=== PATIENT | male | born 1975 | race Caucasian/White ===

== ENCOUNTER 2020-11-06 14:14 | Emergency (ER) | payer OTHER, SELFPAY ==
[2020-11-06] VITALS (7 sets, daily range): BP systolic 130–132; BP diastolic 69–76; PULSE 102–128; RESP 18–21; TEMP 36.8–38.4; O2SAT 95–96; BMI 38.9
--- NOTE | 2020-11-06 14:29 | EKG12_ITS ---
Test Reason : Blood Pressure : / mmHG Vent. Rate : 117 BPM Atrial Rate : 117 BPM P-R Int : 142 ms QRS Dur : 094 ms QT Int : 310 ms P-R-T Axes : 027 029 009 degrees QTc Int : 432 ms Sinus tachycardia Otherwise normal ECG Confirmed by GARETH POSADA, RADHA ([id number]), continuity editor SHADI BREAUX ([id number]) on 11/08/2020 1:55:28 PM Referred By: ANNE-MARIE Confirmed By:RADHA SERVIN MD
--- NOTE | 2020-11-06 14:32 | NURSING ---
NO OLD EKGS
--- NOTE | 2020-11-06 14:47 | EDS_ITS ---
HPI History of Present Illness Chief Complaint: Complaint Narrative Narrative: 44-year-old male presenting with hypotension, fever, dysuria. Patient states that he recently had a vasectomy and this had healed well. He has not had any complications. He denies any testicular pain but does complain of the dysuria. He denies any flank pain. Patient noted he had a fever this morning and took ibuprofen and is afebrile on arrival. Patient was initially seen in urgent care where he could not void and was transferred over to the ER for further treatment. Patient states that currently he feels fine and he has no nausea or pain. [facility] Medical History Hypertension Home Medications ciprofloxacin HCl 500 mg PO BID #14 tablet 11/06/20 [Rx Last Taken Unknown] lisinopril 20 mg PO DAILY 11/06/20 [History Last Taken Unknown] multivitamin 1 tab PO DAILY 11/06/20 [History Last Taken Unknown] phenazopyridine [Pyridium] 200 mg PO Q8H PRN #6 tab 11/06/20 [Rx Last Taken Unknown] Allergy/AdvReac Type Severity Reaction Status Date / Time Penicillins [PCN] Allergy Anaphylaxis Verified 11/06/20 14:18 Social History Smoking Status: Never smoker ROS ROS ED Constitutional Constitutional ED: Reports chills and fever(s) Eyes Eyes: Denies blurry vision or change in vision ENT ENT ED: Denies rhinorrhea or sore throat Cardiovascular Cardiovascular: Denies chest pain or palpitations Respiratory/Chest Respiratory/Chest: Denies cough or dyspnea Gastrointestinal Gastrointestinal: Denies abdominal pain, nausea or vomiting Genitourinary Genitourinary ED: Reports dysuria and urinary frequency Musculoskeletal Musculoskeletal: Denies arthralgias, back pain or neck pain Integumentary Denies abscess or rash Neurologic Neurologic: Denies headache(s) or paresthesias Psychiatric Psychiatric: Denies anxiety or depression EXAM Physical Exam Const Vital Signs: 11/06/20 14:15 11/06/20 14:45 11/06/20 14:50 Temperature 98.2 F 98.2 F Temperature Source Temporal Oral Pulse Rate 128 H 128 H Respiratory Rate 18 18 Blood Pressure 130/76 H 130/76 H Blood Pressure Mean 94 94 Pulse Ox 95 95 Oxygen Delivery Method Room Air Room Air Room Air 11/06/20 14:56 11/06/20 15:30 Temperature 101.2 F H 101.2 F H Temperature Source Oral Oral Pulse Rate 109 H Respiratory Rate 21 H Blood Pressure 132/71 H Blood Pressure Mean 91 Pulse Ox 96 Oxygen Delivery Method Room Air Positive well nourished General Appearance ED: NAD; Negative for pallor HEENT normocephalic and atraumatic Eyes PERRL and EOMs intact bilaterally General Eye ED: Negative for pale conjunctiva Resp normal respiratory effort and clear to auscultation bilaterally Cardio regular rhythm Rate: tachycardic GI non-tender and non-distended Palpation: soft Penis: normal penis Testes: testicular lie normal Extremity normal to inspection General Extremety ED: Negative for edema General Extremity: Negative for edema Neuro oriented x3 and CN's II-XII intact bilaterally Sensorium / Orientation: alert Psych mental status grossly normal Skin General Skin Exam: Negative for jaundice or pallor Lesions: no lesions Rashes: no rashes MDM MDM MDM Narrative Medical decision making narrative: Patient presenting with fever, tachycardia, reported hypotension from urgent care. Patient's blood pressure was reportedly 82/52 at the urgent care. He states he was a little bit lightheaded but felt otherwise fine. He noted that he had a fever this morning and took ibuprofen. Patient is also complaining of dysuria. He does not have any flank pain. Given patient's reported vital signs and presentation patient received a septic work- up. Patient had EKG which is sinus rhythm at 117 bpm without signs of ischemia or dysrhythmia on my interpretation. Chest ray as interpreted by myself shows no acute cardiopulmonary process and the radiologist does agree. Patient's patient does not have a leukocytosis. His hemoglobin hematocrit are stable. Creatinine is normal. Electrolytes within normal limits. Troponin is 5.1. LFTs are normal with exception of an elevated bilirubin of 1.3. Patient was discussed with urology who requested a CT abdomen pelvis to be performed to rule out infected kidney stone. This was performed And is negative. Patient has not had any low blood pressures here in the ER. After his fever was treated his heart rate slowed down. Patient's lab work-up ultimately is unremarkable. Patient was again discussed with Dr. Giles who felt comfortable having the patient follow-up as an outpatient. He recommended Cipro. Urine culture is pending. Patient is given return precautions. Impression: 1. UTI 2. Febrile illness Lab Data Labs: Laboratory Results - last 24 hr 11/06/20 11/06/20 11/06/20 14:51 14:51 14:51 WBC 10.0 RBC 5.15 Hgb 14.2 Hct 42.2 MCV 81.9 MCH 27.6 MCHC 33.6 RDW Std Deviation 38.2 RDW Coeff of [place] 12.8 Plt Count 173 MPV 10.7 Immature Gran % (Auto) 0.500 Neut % (Auto) 88.8 H Lymph % (Auto) 4.6 L [place] % (Auto) 5.6 Eos % (Auto) 0.1 Baso % (Auto) 0.4 Absolute Neuts (auto) 8.9 H Absolute Lymphs (auto) 0.46 L Nucleated RBC % 0 Differential Comment SCANNED PT 12.8 INR 1.0 APTT 25.3 Sodium 135 L Potassium 3.8 Chloride 103 Carbon Dioxide 25.0 Anion Gap 7 BUN 24 H Creatinine 1.18 Estim Creat Clear Calc 97.06 Est GFR (MDRD) Af Amer 86 Est GFR (MDRD) Non-Af 71 BUN/Creatinine Ratio 20.3 H Glucose 92 Lactic Acid Calcium 8.7 Total Bilirubin 1.30 H AST 15 ALT 45 Alkaline Phosphatase 108 Troponin I High Sens 5.1 Total Protein 7.0 Albumin 4.0 Globulin 3.0 Albumin/Globulin Ratio 1.3 Urine Color Urine Clarity Urine pH Ur Specific [place] Urine Protein Urine Glucose (UA) Urine Ketones Urine Occult Blood Urine Nitrite Urine Bilirubin Urine Urobilinogen Ur Leukocyte Esterase Urine RBC Urine WBC Ur Squamous Epith Cells Urine Bacteria Urine Mucus 11/06/20 11/06/20 14:51 15:00 WBC RBC Hgb Hct MCV MCH MCHC RDW Std Deviation RDW Coeff of [place] Plt Count MPV Immature Gran % (Auto) Neut % (Auto) Lymph % (Auto) [place] % (Auto) Eos % (Auto) Baso % (Auto) Absolute Neuts (auto) Absolute Lymphs (auto) Nucleated RBC % Differential Comment PT INR APTT Sodium Potassium Chloride Carbon Dioxide Anion Gap BUN Creatinine Estim Creat Clear Calc Est GFR (MDRD) Af Amer Est GFR (MDRD) Non-Af BUN/Creatinine Ratio Glucose Lactic Acid 1.2 Calcium Total Bilirubin AST ALT Alkaline Phosphatase Troponin I High Sens Total Protein Albumin Globulin Albumin/Globulin Ratio Urine Color Yellow Urine Clarity Cloudy Urine pH 6.0 Ur Specific [place] 1.015 Urine Protein 100 H Urine Glucose (UA) Normal Urine Ketones 5 H Urine Occult Blood 250 H Urine Nitrite Positive H Urine Bilirubin 1 H Urine Urobilinogen 1 H Ur Leukocyte Esterase 500 H Urine RBC 25-50 SEEN Urine WBC >100 SEEN Ur Squamous Epith Cells 0 SEEN Urine Bacteria 1+ Urine Mucus 0 SEEN Radiography Diagnostic Testing: Radiology Impression Abdomen/Pelvis CT 11/06/20 14:52 IMPRESSION: No acute abnormality. Electronically Signed: Richard Louie MD at 16:21 EDT Tel , Service support , Chest X-Ray 11/06/20 15:25 IMPRESSION: Normal x-ray examination of the chest. Electronically Signed: Richard Louie MD at 15:55 EDT Tel , Service support , Discharge Plan Triage Chief Complaint: Complaint ED Provider: Kendall Arshad Dx/Rx/DC Orders Instructions: ED Bladder Infection, Male (Adult) Prescriptions: New phenazopyridine [Pyridium] 200 mg tablet 200 mg PO Q8H PRN (Reason: pain) Qty: 6 RF: 0 ciprofloxacin HCl 500 mg tablet 500 mg PO BID Qty: 14 RF: 0 No Action multivitamin Tablet 1 tab PO DAILY RF: 0 lisinopril 20 mg Tablet 20 mg PO DAILY RF: 0 Primary Care Provider: Richard Funk MATHEMATICAL ENGINEER Referrals: Richard Funk MATHEMATICAL ENGINEER, MATHEMATICAL ENGINEER-C [Primary Care Provider] - Disposition Disposition: Home, Self Care
[2020-11-06] MEDS: 0.9% Normal Saline 1,000 ML 999 ML IV (14:49)
--- NOTE | 2020-11-06 14:52 | CT_ITS ---
STUDY: CT ABDOMEN AND PELVIS WITHOUT CONTRAST REASON FOR EXAM: Male, 44 years old. fever/dysuria RADIATION DOSAGE (If Supplied By Facility): CTDIvol = ( 22.86 ) mGy, DLP = ( 1325.12 ) mGycm TECHNIQUE: Transaxial images were obtained from the dome of the diaphragm to the symphysis pubis without oral contrast, and without intravenous contrast. Sagittal and coronal images were reconstructed. Individualized dose optimization techniques were used for this CT. COMPARISON: None. FINDINGS: The visualized lung bases are unremarkable. The visualized portions of the heart are within normal limits. Normal liver. Normal gallbladder and extrahepatic biliary system. Normal spleen. Normal pancreas. Normal bilateral adrenal glands. Normal right kidney. Normal left kidney. Normal visualized stomach. Normal small intestine. Normal colon. The appendix is visualized and appears normal. Normal abdominal aorta. Normal inferior vena cava. Normal retroperitoneum. Normal urinary bladder. There are prostatic calcifications. There is a small umbilical hernia containing fat. Small bilateral inguinal hernias containing fat. Normal osseous structures. CT/Abdomen/Pelvis without Cont IMPRESSION: No acute abnormality. Electronically Signed: Richard Louie MD at 16:21 EDT Tel , Service support ,
[2020-11-06 14:59] LABS: Absolute Lymphocyte Count 0.46 X10^3/uL (0.83-4.51); Absolute Neutrophil Count 8.9 X10^3/uL (2.0-7.7); Basophil# 0.04 X10^3/uL; Basophil% 0.4 % (0-1); Eosinophil# 0.01 X10^3/uL; Eosinophils% 0.1 % (0-5); Hematocrit 42.2 % (40-54); Hemoglobin 14.2 g/dL (13.0-16.5); Lymphocyte # 0.46 X10^3/ul (0.83-4.51); Lymphocyte % 4.6 % (19-41); Mean Corp Hgb Conc 33.6 g/dL (32-36); Mean Corpuscular Hgb 27.6 pg (27.0-32.0); Mean Corpuscular Volume 81.9 fL (80-94); Mean Platelet Vol. 10.7 fl (6.2-12.0); Monocyte# 0.56 X10^3/uL; Monocyte% 5.6 % (0-10); NRBC Flagged by Analyzer 0 % (0-5); Neutrophil # 8.85 X10^3/uL (2.7-7.7); Neutrophil % 88.8 % (47-70); POSITIVE DIFFERENTIAL YES; Platelet Count 173 K/mm3 (150-450); RBC Distribution Width CV 12.8 % (11.6-14.6); RBC Distribution Width SD 38.2 fl (35.1-43.9); Red Blood Count 5.15 M/mm3 (4.6-6.2)
[2020-11-06 15:01] LABS: Differential Indicated SCAN CRITERIA MET
[2020-11-06 15:05] LABS: Mucous, Urine 0 SEEN /hpf (<or=2+); Squamous Epithelial Cells - UA 0 SEEN /hpf (0-5)
[2020-11-06 15:08] LABS: Prothrombin Time (Protime)PT. 12.8 SECONDS (11.7-14.9)
[2020-11-06 15:09] LABS: Partial Thromboplast Time 25.3 Seconds (24.1-36.2)
[2020-11-06 15:11] LABS: Color, Urine Yellow (Yellow); Glucose, Dipstick Normal (Normal); Ketone-Dipstick 5 mg/dl (Negative); Leukocyte Esterase-Dipstick 500 /ul (Negative); Nitrite-Dipstick Positive (Negative); Occult Blood-Urine 250 /ul (Negative); Protein-Dipstick 100 mg/dl (Negative); Specific Gravity, Urine 1.015 (1.002-1.030); Urine Bilirubin Dipstick 1 mg/dL (Negative); Urine Clarity Cloudy (Clear); Urine Urobilinogen 1 mg/dl (Normal)
[2020-11-06 15:19] LABS: ALB/GLOB Ratio 1.3 RATIO (0.9-2.4); AST(SGOT) 15 U/L (15-37); Alanine Aminotransfer ALT/SGPT 45 U/L (16-61); Alkaline Phosphatase 108 U/L (45-117); Anion Gap 7 (5-15); BUN 24 mg/dL (7-18); BUN/Creat Ratio 20.3 RATIO (10-20); Calcium,Total 8.7 mg/dL (8.5-10.1); Chloride 103 mmol/L (98-107); Creatinine, Serum 1.18 mg/dL (0.70-1.30); EST Glomerular Filtration Rate 71 mL/min (>60); Est Glom Filt Rate - Afr Amer 86 mL/min (>60); Estimated Creatinine Clearance 97.06 ml/min; Glucose 92 mg/dL (74-106); Potassium 3.8 mmol/L (3.5-5.1); Sodium Level 135 mmol/L (136-145); Troponin-I HS 5.1 pg/mL (3.0-78.5)
[2020-11-06 15:22] LABS: Bacteria 1+ /hpf (None Seen); Red Blood Cells-Urine 25-50 SEEN /hpf (0-5); White Blood Cells >100 SEEN /hpf (0-5)
--- NOTE | 2020-11-06 15:25 | RAD_ITS ---
STUDY: X-RAY CHEST REASON FOR EXAM: Male, 44 years old. fever TECHNIQUE: Single AP portable view of the chest. COMPARISON: None. FINDINGS: The lungs are clear and expanded. There is no demonstrated pleural abnormality. Normal size heart. Normal mediastinum and krishna. Normal visualized pulmonary arteries. Normal visualized aortic arch and descending thoracic aorta. Normal visualized thoracic spine. Normal visualized ribs, clavicles, and shoulders. There is no demonstrated abnormality of the visualized soft tissue structures of the upper abdomen. RAD/Chest 1 View (Portable) IMPRESSION: Normal x-ray examination of the chest. Electronically Signed: Richard Louie MD at 15:55 EDT Tel , Service support ,
[2020-11-06 15:34] LABS: Differential Comment SCANNED
[2020-11-06] MEDS: Acetaminophen 500 MG Tablet 1000 MG PO (15:34)
[2020-11-06 15:44] LABS: Lactic Acid 1.2 mmol/L (0.4-1.9)
[2020-11-06] MEDS: Ciprofloxacin 500 MG Tablet PO (17:07)
[2020-11-06] MEDS: Phenazopyridine 95 MG Tablet 190 MG PO (17:07)
== END 2020-11-06 17:26 | disposition home or self-care (01) ==
PROVIDERS: Emergency Provider Student in an Organized Health Care Education/Training Program; PCP Nurse Practitioner Family
DX: N39.0 Urinary tract infection, site not specified (principal); R50.9 Fever, unspecified; I10 Essential (primary) hypertension; Z79.899 Other long term (current) drug therapy
CPT/HCPCS: 71045; 74176; 80053; 81001; 83605; 84484; 85025; 85610; 85730; 87040; 87077; 87086; 87088; 87186; 87426; 93005; 96360; 96361; 99285; J7030; A4216

== ENCOUNTER → 2020-11-07 | Outpatient (CLI) | payer OTHER, SELFPAY ==
[2020-11-06 14:15] VITALS: BMI 38.9
== END | disposition home or self-care (01) ==
LOC: LABSPEC 16:53
PROVIDERS: PCP Nurse Practitioner Family; Visit Provider Urology
DX: N30.01 Acute cystitis with hematuria (principal)
CPT/HCPCS: 87086